=== PATIENT | female | born 2000 | race Two or more races ===

== ENCOUNTER 2022-03-03 10:47 | Outpatient (CLI) | payer OTHER | END 2022-03-03 10:48 | disposition home or self-care (01) | LOC: LAB 10:47 | PROVIDERS: ATTEND General Practice | DX: I10 Essential (primary) hypertension (principal); N39.0 Urinary tract infection, site not specified; E03.8 Other specified hypothyroidism; E11.9 Type 2 diabetes mellitus without complications; D64.9 Anemia, unspecified; E78.49 Other hyperlipidemia ==

== ENCOUNTER 2022-04-04 14:51 | Outpatient (CLI) | payer OTHER | END 2022-04-04 14:57 | disposition home or self-care (01) | LOC: LAB 14:51 | DX: Z01.419 Encounter for gynecological examination (general) (routine) without abnormal findings (principal); Z11.3 Encounter for screening for infections with a predominantly sexual mode of transmission ==

== ENCOUNTER 2022-05-17 13:40 | Emergency (ER) | payer OTHER ==
[~2022-05-17] VITALS: Ht 165.1 cm; Wt 61.2 kg
[2022-05-17] MEDS ORDERED: QUETIAPINE FUM100 MG PO (14:09)
[2022-05-17] MEDS ORDERED: LORAZEPAM0.5 MG PO (14:09)
[2022-05-17] MEDS ORDERED: SERTRALINE HCL50 MG PO (14:10)
[2022-05-17] MEDS ORDERED: TRAZODONE HCL50 MG PO (14:10)
== END 2022-05-17 15:57 | disposition home or self-care (01) ==
LOC: ER 13:40
DX: R42 Dizziness and giddiness (principal); F99 Mental disorder, not otherwise specified; T50.905A Adverse effect of unspecified drugs, medicaments and biological substances, initial encounter; Z86.59 Personal history of other mental and behavioral disorders; Z91.018 Allergy to other foods; Z91.013 Allergy to seafood

== ENCOUNTER 2023-01-05 09:17 | Emergency (ER) | payer OTHER ==
[~2023-01-05] VITALS: Ht 165.1 cm; Wt 64.0 kg
[~2023-01-05 09:17] MED LIST: LORAZEPAM0.5 MG PO; QUETIAPINE FUM100 MG PO; SERTRALINE HCL50 MG PO; TRAZODONE HCL50 MG PO
== END 2023-01-05 11:23 | disposition home or self-care (01) ==
LOC: ER 09:17
DX: H10.89 Other conjunctivitis (principal); Z91.013 Allergy to seafood; Z88.8 Allergy status to other drugs, medicaments and biological substances

== ENCOUNTER 2023-05-15 12:38 | Outpatient (CLI) | payer OTHER | END 2023-05-15 14:38 | disposition home or self-care (01) | LOC: PRENATAL 12:38 | PROVIDERS: ATTEND Obstetrics & Gynecology Maternal & Fetal Medicine | DX: O35.3XX0 Maternal care for (suspected) damage to fetus from viral disease in mother, not applicable or unspecified (principal); O44.00 Complete placenta previa NOS or without hemorrhage, unspecified trimester; Z3A.20 20 weeks gestation of pregnancy ==

== ENCOUNTER 2023-08-07 13:19 | Outpatient (CLI) | payer OTHER | END 2023-08-07 13:22 | disposition home or self-care (01) | LOC: PRENATAL 13:19 | PROVIDERS: ATTEND Obstetrics & Gynecology Maternal & Fetal Medicine | DX: O26.849 Uterine size-date discrepancy, unspecified trimester (principal); O36.8199 Decreased fetal movements, unspecified trimester, other fetus; Z3A.32 32 weeks gestation of pregnancy ==